=== PATIENT | female | born 1985 | race Caucasian/White ===

== ENCOUNTER 2019-07-18 19:07 | Inpatient (IN) | payer BC ==
--- NOTE | 2019-07-18 19:38 | ER Document Report ---
ED Medical Screen (RME) - General Chief Complaint: Abdominal Pain Stated Complaint: ABDOMINAL PAIN Time Seen by Provider: 07/18/19 19:35 Mode of Arrival: Wheelchair Information source: Patient Notes: 33-year-old female presented to ED for complaint of right lower quadrant pain. She states she was told she had a sac on her appendix in November. She states she was scheduled for the surgery to have the appendix removed but she got before the scheduled surgery was scheduled so that they would not do the surgery to remove the appendix. She states they told her that time they did not know if the appendix would last till September but they could not do it while she was . She states she has since had a miscarriage and then today about 5:00 the pain was much worse than it had been. Denies any fevers. She states she has had 3 emesis today. Is been nauseated all day. I have greeted and performed a rapid initial assessment of this patient. A comprehensive ED assessment and evaluation of the patient, analysis of test results and completion of medical decision making process will be conducted by an additional ED providers.
[2019-07-18] MEDS ORDERED: NORMAL SALINE 1000 ML 1,000 ML IV ONE (19:39)
[2019-07-18] MEDS ORDERED: ONDANSETRON 4 MG TAB.RAPDIS PO ONE (19:39)
[2019-07-18 21:03] LABS: ABSOLUTE BASOPHILS # (AUTO) 0.1 10^3/uL (0.0-0.2); ABSOLUTE EOSINOPHILS # (AUTO) 0.2 10^3/uL (0.0-0.6); ABSOLUTE LYMPHOCYTES (AUTO) 2.2 10^3/uL (0.5-4.7); ABSOLUTE MONOCYTES (AUTO) 0.7 10^3/uL (0.1-1.4); ABSOLUTE NEUT (AUTO) 5.8 10^3/uL (1.7-8.2); BASOPHILS % (AUTO) 0.7 % (0-2); EOSINOPHILS % (AUTO) 1.8 % (0-6); HEMATOCRIT 41.7 % (36.0-47.0); HEMOGLOBIN 14.7 g/dL (12.0-15.5); LYMPHOCYTES % (AUTO) 24.7 % (13-45); MEAN CORPUSCULAR HEMOGLOBIN 32.3 pg (27.0-33.4); MEAN CORPUSCULAR HGB CONC 35.2 g/dL (32.0-36.0); MEAN CORPUSCULAR VOLUME 92 fl (80-97); MONOCYTES % (AUTO) 7.8 % (3-13); PLATELET COUNT 247 10^3/uL (150-450); RED BLOOD COUNT 4.54 10^6/uL (3.72-5.28); RED CELL DISTRIBUTION WIDTH 13.9 % (11.5-14.0); TOTAL CELLS COUNTED % (AUTO) 100 %
[2019-07-18 21:17] LABS: ALBUMIN 4.7 g/dL (3.5-5.0); ALKALINE PHOSPHATASE 92 U/L (38-126); ANION GAP 10 (5-19); ASPARTATE AMINO TRANSFERASE 34 U/L (14-36); BILIRUBIN,DIRECT 0.2 mg/dL (0.0-0.4); BILIRUBIN,TOTAL 0.6 mg/dL (0.2-1.3); BLOOD UREA NITROGEN 16 mg/dL (7-20); CALCIUM 9.9 mg/dL (8.4-10.2); CARBON DIOXIDE 28 mmol/L (22-30); CHLORIDE 101 mmol/L (98-107); GLUCOSE 93 mg/dL (75-110); POTASSIUM 3.8 mmol/L (3.6-5.0); TOTAL PROTEIN 8.4 g/dL (6.3-8.2)
[2019-07-18 21:30] LABS: APPEARANCE,URINE SLIGHTLY-CLOUDY; BILIRUBIN,URINE NEGATIVE (NEGATIVE); COLOR,URINE YELLOW; GLUCOSE, URINE NEGATIVE (NEGATIVE); KETONES,URINE NEGATIVE (NEGATIVE); PROTEIN,URINE NEGATIVE (NEGATIVE); URINE SPECIFIC GRAVITY 1.019; UROBILINOGEN,URINE NEGATIVE mg/dL (<2.0)
[2019-07-18] MEDS ORDERED: NORMAL SALINE 1000 ML 1,000 ML IV PRN (22:10)
[2019-07-18] MEDS ORDERED: ONDANSETRON HCL INJ/PF 4 MG/2 ML SDV IV ONE (22:11)
[2019-07-18] MEDS ORDERED: FENTANYL CITRATE INJ/PF 100 MCG/2 ML AMPUL IV PRN (22:11)
--- NOTE | 2019-07-18 22:18 | ER Document Report ---
ED General - General Chief Complaint: Abdominal Pain Stated Complaint: ABDOMINAL PAIN Time Seen by Provider: 07/18/19 19:35 Mode of Arrival: Wheelchair TRAVEL OUTSIDE OF THE [place] IN LAST 30 DAYS: No - HPI Notes: 33-year-old female a chief complaint of right lower quadrant abdominal pain associated with nausea and vomiting onset around 5 PM today getting progressively worse. Location of pain has not changed since onset. No fever or chills. No urinary symptoms. Patient has had long-standing history of irregular menses and has not had a normal period since May. Of interest this lady recently moved here from [facility] and says about 6 months ago she had been worked up for abdominal pain and found to have a "pocket" on the appendix and they had recommended an elective appendectomy. There was apparently some sort of a problem that required her to cancel schedule surgery and she moved in the meantime. Patient is a 4 para 2 with 1 stillbirth and 1 spontaneous miscarriage. No history of ectopic . Previous cholecystectomy. Patient says she is also been told in the past that she had a small umbilical hernia. Patient denies any history of diabetes hypertension or cardiac disease. - Related Data Allergies/Adverse Reactions: morphine Allergy (Verified 07/18/19 20:37) oxycodone Allergy (Verified 07/18/19 20:37) Past Medical History - General Information source: Patient, Relative - Social History Smoking Status: Never Smoker Frequency of alcohol use: None Drug Abuse: None Family History: Reviewed & Not Pertinent Patient has suicidal ideation: No Patient has homicidal ideation: No Review of Systems - Review of Systems Notes: Constitutional: Negative for fever. HENT: Negative for sore throat. Eyes: Negative for visual changes. Cardiovascular: Negative for chest pain. Respiratory: Negative for shortness of breath. Gastrointestinal: As per HPI. Genitourinary: Negative for dysuria. Musculoskeletal: Negative for back pain. Skin: Negative for rash. Neurological: Negative for headaches, weakness or numbness. 10 point ROS negative except as marked above and in HPI. Physical Exam - Vital signs Vitals: Temp Pulse Resp BP 97.4 F 104 H 22 H 135/87 H 07/18/19 19:41 07/18/19 19:41 07/18/19 19:41 07/18/19 19:41 - Notes Notes: GENERAL: Moderately obese middle-aged female who appears quite uncomfortable. SKIN: Good turgor no rashes. HEAD: Normocephalic atraumatic. EYES: PERRLA. Conjunctivae and sclerae clear. EARS: CANALS AND TMS CLEAR. NOSE: CLEAR. MOUTH: Moist mucosa. Good dentition. No stridor or edema. No drooling. NECK: Supple. No masses or thyromegaly. No adenopathy. Carotids 2+ without bruits. No JVD. BACK: Symmetrical without tenderness. CHEST: Respirations unlabored. Breath sounds clear and symmetrical. HEART: Regular rhythm. No murmur gallop or rub. ABDOMEN: Obese. Exquisitely tender right lower quadrant. Mild voluntary guarding without rigidity, masses, organomegaly or rebound. Bowel sounds normally active. No bruits. GENITALIA: Deferred. EXTREMITIES: No edema. No calf tenderness. Cap refill less than 1.5 seconds. Dorsalis pedis and posterior tibial pulses 3+ and symmetrical. NEUROLOGICAL: GCS 15. Alert and oriented x3. Normal gait. Fluent speech. Cranial nerves II through XII intact. Sensorimotor and cerebellar normal. Normal tone. Course - Re-evaluation Re-evalutation: 07/18/19 22:17 Primary concern would be appendicitis. Labs are unremarkable at this point. test is negative. Patient will remain n.p.o. and is receiving normal saline IV fentanyl and IV Zofran pending results of CT scan with oral and IV contrast. 07/19/19 02:33 CT shows mucocele of the appendix and large fat-containing umbilical hernia. Ongoing nausea. Patient now describes 5/10 pain and remains tender. Surgical consultation with Dr. Crowder who will evaluate patient at this time. 07/19/19 03:12 Patient is being admitted to the general surgery service. - Vital Signs Vital signs: Temp Pulse Resp BP Pulse Ox 97.4 F 104 H 22 H 135/87 H 07/18/19 19:41 07/18/19 19:41 07/18/19 19:41 07/18/19 19:41 - Laboratory Result Diagrams: 07/18/19 20:39 07/18/19 20:39 Laboratory results interpreted by me: 07/18/19 07/18/19 20:00 20:39 Total Protein 8.4 H Leukocyte Esterase Rfl SMALL H - Diagnostic Test Radiology reviewed: Reports reviewed - CT shows a large mucocele of the appendix and some scattered diverticula without diverticulitis as well as a moderate sized fat-containing umbilical hernia. Discharge - Discharge Clinical Impression: Mucocele of appendix Abdominal pain Qualifiers: Abdominal location: right lower quadrant Qualified Code(s): R10.31 - Right lower quadrant pain Umbilical hernia Qualifiers: Obstruction and gangrene presence: without obstruction or gangrene Qualified Code(s): K42.9 - Umbilical hernia without obstruction or gangrene Condition: Good Disposition: ADMITTED INPATIENT Admitting Provider: Surgicalist
[2019-07-18] MEDS ORDERED: METOCLOPRAMIDE HCL INJ/PF 10 MG/2 ML SDV IV ONE (23:12)
--- NOTE | 2019-07-19 01:38 | RADIOLOGY REPORT (SQ) ---
CT abdomen and pelvis with contrast on 07/19/2019 at 1:07 AM CLINICAL INDICATION: Right lower quadrant pain TECHNIQUE: Multiple axial images are obtained throughout the abdomen and pelvis following the administration of IV contrast, 100 mL of Omnipaque 350 contrast was administered intravenously without complication. This exam was performed according to our departmental dose-optimization program, which includes automated exposure control, adjustment of the mA and/or kV according to patient size and/or use of iterative reconstruction technique. Total DLP is 1893.41 mGy*cm. COMPARISON: None FINDINGS: Abdomen: There is minimal left basilar atelectasis. The lung bases are otherwise clear. The patient is status post cholecystectomy. The solid abdominal organs are unremarkable. There is no abdominal adenopathy. There is a small to moderate-sized umbilical hernia containing fat. There is no free fluid or free air within the abdomen. There is diverticulosis. There is a very small hiatal hernia. The abdominal portion of the GI tract is otherwise unremarkable. Pelvis: There is a large mucocele of the appendix measuring up to 2.4 cm in diameter. There is no adjacent inflammation around the appendix to suggest acute appendicitis. Due to this large mucocele would recommend surgical consultation for nonemergent appendectomy. There is diverticulosis. The uterus is retroverted/retroflexed. There is no free fluid in the pelvis. Pelvic organs otherwise appear unremarkable by CT. There is no pelvic adenopathy. Pelvic portion of the GI tract is otherwise unremarkable. No bony abnormality is noted. IMPRESSION: 1. Large mucocele of the appendix, recommend surgical consultation for nonemergent appendectomy. 2. Diverticulosis. 3. Small to moderate-sized umbilical hernia containing only fat.
[2019-07-19] MEDS ORDERED: MORPHINE SULFATE 10 MG/ML INJ IV PRN (03:03)
[2019-07-19] MEDS ORDERED: ONDANSETRON HCL INJ/PF 4 MG/2 ML SDV IV PRN (03:03)
--- NOTE | 2019-07-19 03:03 | PDOC H&P ---
History of Present Illness Admission Date/PCP: 07/19/19 Patient complains of: abdominal pain History of Present Illness: LORNA HU is a 33-year-old female a chief complaint of right lower quadrant abdominal pain associated with nausea and vomiting onset around 5 PM today getting progressively worse. Location of pain has not changed since onset. No fever or chills. No urinary symptoms. Patient has had long-standing history of irregular menses and has not had a normal period since May. Of interest she recently moved here from [facility] and says about 6 months ago she had been worked up for abdominal pain was scheduled for a umbililcal hernia repair. just prior to surgery according to her was to have a "pocket" on the appendix and they had recommended an elective appendectomy, and did not proceed with the umbilical hernia repair There was apparently some sort of a problem that required her to cancel schedule surgery and she moved in the meantime. she currently is c/o rt sided abd pain. Past Medical History Cardiac Medical History: Denies: None, Atrial Fibrillation, Congestive Heart Failure, Coronary Artery Disease, DVT, Myocardial Infarction, Hyperlipidema, Hypertension, Peripheral Vascular Disease, Pulmonary Embolism, Heart Murmur, Other Pulmonary Medical History: Reports: Asthma EENT Medical History: Denies: None, Cataracts, Eyes, Ears, Nose, Throat, Other Neurological Medical History: Denies: None, Hemorrhagic CVA, Ischemic CVA, Migraine, Multiple Sclerosis, Seizures, Other Endocrine Medical History: Denies: None, Diabetes Mellitus Type 1, Diabetes Mellitus Type 2, Gestational Diabetes, Hyperthyroidism, Hypothyroidism, Obesity, Other Renal/ Medical History: Denies: None, Chronic Kidney Disease, End Stage Renal Disease, Nephrolithiasis, Other Malignancy Medical History: Reports: Lymphoma Denies: None, Bone Cancer, Brain Cancer, Breast Cancer, Cervical Cancer, Colorectal Cancer, Leukemia, Liver Cancer, Lung Cancer, Ovarian Cancer, Pancreatic Cancer, Renal (Kidney) Cancer, Skin Cancer, Other Malignancy History Note: hx of hodgkins lymphoma, s/p chemo/rt. GI Medical History: Denies: None, Cirrhosis, Crohn's Disease, Diverticulitis, Gastroesophageal Reflux Disease, Hepatitis, Hiatal Hernia, Peptic Ulcer Disease, Ulcerative Colitis, Other Past Surgical History Past Surgical History: Reports: Cholecystectomy, Vascular Surgery - dominic cath left chest wall Social History Smoking Status: Never Smoker Family History Parental Family History Reviewed: No Children Family History Reviewed: NA Sibling(s) Family History Reviewed.: NA Medication/Allergy Allergies/Adverse Reactions: morphine Allergy (Verified 07/18/19 20:37) oxycodone Allergy (Verified 07/18/19 20:37) Review of Systems Constitutional: PRESENT: fever(s) Eyes: ABSENT: as per HPI, visual disturbances, other Ears: ABSENT: as per HPI, hearing changes, other Nose, Mouth, and Throat: ABSENT: as per HPI, headache(s), mouth pain, sore throat, vertigo, other Breasts: ABSENT: as per HPI, other Cardiovascular: ABSENT: as per HPI, chest pain, dyspnea on exertion, edema, orthropnea, palpitations, other Respiratory: ABSENT: as per HPI, cough, dyspnea, hemoptysis, sputum, other Gastrointestinal: PRESENT: abdominal pain Musculoskeletal: ABSENT: as per HPI, back pain, deformity, joint swelling, muscle weakness, other Integumentary: ABSENT: as per HPI, diaphoresis, erythema, lesions, pruritus, rash, wounds, other Neurological: ABSENT: as per HPI, abnormal gait, abnormal movements, abnormal speech, confusion, convulsions, dizziness, focal weakness, frequent falls, lack of coordination, memory loss, numbness, paresthesias, restless legs, syncope, tingling, tremor(s), vertigo, weakness, other Psychiatric: ABSENT: as per HPI, anxiety, depression, hallucinations, homidical ideation, suicidal ideation, other Endocrine: ABSENT: as per HPI, cold intolerance, flushing, heat intolerance, menstrual abnormalities, polydipsia, polyphagia, polyuria, other Hematologic/Lymphatic: ABSENT: as per HPI, easy bleeding, easy bruising, lym phadenopathy, other Allergic/Immunologic: ABSENT: as per HPI, seasonal rhinorrhea, other Physical Exam Vital Signs: Temp Pulse Resp BP Pulse Ox 97.4 F 104 H 22 H 135/87 H 07/18/19 19:41 07/18/19 19:41 07/18/19 19:41 07/18/19 19:41 Intake & Output 07/17/19 07/18/19 07/19/19 06:59 06:59 06:59 Intake Total 1999 Balance 1999 Weight 106.5 kg General appearance: PRESENT: mild distress, obese Head exam: PRESENT: normocephalic Eye exam: PRESENT: EOMI Ear exam: PRESENT: normal external ear exam Mouth exam: PRESENT: moist Neck exam: PRESENT: full ROM Respiratory exam: PRESENT: clear to auscultation ladan, other Cardiovascular exam: PRESENT: RRR, other - she has a port palpable left chest wall Pulses: PRESENT: normal radial pulses, normal femoral pulses GI/Abdominal exam: PRESENT: guarding - rlq, tenderness Rectal exam: PRESENT: deferred Extremities exam: PRESENT: full ROM Musculoskeletal exam: PRESENT: full ROM Neurological exam: PRESENT: alert, awake, oriented to person, oriented to place Psychiatric exam: PRESENT: appropriate affect Skin exam: PRESENT: dry Results Laboratory Results: 07/18/19 20:39 07/18/19 20:39 07/18/19 07/18/19 07/18/19 20:00 20:39 20:39 WBC 9.0 RBC 4.54 Hgb 14.7 Hct 41.7 MCV 92 MCH 32.3 MCHC 35.2 RDW 13.9 Plt Count 247 Seg Neutrophils % 65.0 Sodium 139.1 Potassium 3.8 Chloride 101 Carbon Dioxide 28 Anion Gap 10 BUN 16 Creatinine 0.86 Est GFR ( Amer) > 60 Glucose 93 Calcium 9.9 Total Bilirubin 0.6 AST 34 Alkaline Phosphatase 92 Total Protein 8.4 H Albumin 4.7 Serum HCG, Qual Urine Color YELLOW Urine Appearance SLIGHTLY-CLOUDY Urine pH 7.0 Ur Specific [place] 1.019 Urine Protein NEGATIVE Urine Glucose (UA) NEGATIVE Urine Ketones NEGATIVE Urine Blood NEGATIVE Urine RBC (Auto) 2 07/18/19 20:39 WBC RBC Hgb Hct MCV MCH MCHC RDW Plt Count Seg Neutrophils % Sodium Potassium Chloride Carbon Dioxide Anion Gap BUN Creatinine Est GFR ( Amer) Glucose Calcium Total Bilirubin AST Alkaline Phosphatase Total Protein Albumin Serum HCG, Qual NEGATIVE Urine Color Urine Appearance Urine pH Ur Specific [place] Urine Protein Urine Glucose (UA) Urine Ketones Urine Blood Urine RBC (Auto) Impressions: Abdomen/Pelvis CT 07/19/19 00:00 IMPRESSION: 1. Large mucocele of the appendix, recommend surgical consultation for nonemergent appendectomy. 2. Diverticulosis. 3. Small to moderate-sized umbilical hernia containing only fat. Assessment & Plan - Plan Summary Plan Summary: will admit pt for emergent laparoscopic appendectomy, umbilical hernia repair and poss port-a cath removal Discussed risks and benefits including bleeding infection pulmonary embolism stroke microinfarction and . Specific to the operation she understands the possibility of injury to adjacent organs including the small bowel and colon ureters intra-abdominal vasculature which could result in need for additional surgery and permanent disability she understands the possibility of leak after surgery which could result in intra-abdominal sepsis and in addition that she understands the possibility of recurrence after her umbilical hernia repair in addition to chronic pain secondary to the hernia repair. As far as her port is concerned she understands the possibility of infection related to port removal as well as embolism which could result in . These risks and benefits of been discussed with her and she understands and agrees to proceed
[2019-07-19] MEDS: POTASSI CL 20 MEQ/D5-1/2NS 1L 1,000 ML IV PRN ×2 (03:37→13:51)
[2019-07-19] MEDS ORDERED: METRONIDAZOLE 500 MG/NS RTU 500 MG/100 ML RTUPB IV PRN (06:11)
[2019-07-19] MEDS ORDERED: CEFAZOLIN 1 GM/D5W RTU 1 GM/50 ML RTUPB IV PRN (06:11)
[2019-07-19] MEDS ORDERED: ACETAMINOPHEN 1,000 MG/100 ML RTUPB IV ONE ×3 (06:15→23:15)
[2019-07-19] MEDS ORDERED: CEFAZOLIN SODIUM 1 GM in DEXTROSE 5%-WATER 50 ML IV PRN (08:07)
--- NOTE | 2019-07-19 09:47 | Progress Note ---
Provider Note Provider Note: Surgical intervention discussed with patient. Plan for laparoscopic versus open appendectomy, primary closure of her umbilical hernia, and removal of her Mediport. Risks/benefits discussed, informed consent obtained, and all questions answered.
[2019-07-19] MEDS ORDERED: ROCURONIUM BROMIDE INJ 50 MG/5 ML VIAL IV ONE (11:57)
[2019-07-19] MEDS ORDERED: SUCCINYLCHOLINE CHLORIDE INJ 200 MG/10 ML VIAL ONE (11:57)
[2019-07-19] MEDS ORDERED: GLYCOPYRROLATE 1 MG/5 ML VIAL ONE (11:57)
[2019-07-19] MEDS ORDERED: NEOSTIGMINE METHYLSULFATE 10 MG/10 ML VIAL ONE (11:57)
[2019-07-19] MEDS ORDERED: FAMOTIDINE INJ/PF 20 MG/2 ML SDV IV ONE ×2 (13:59→14:15)
[2019-07-19] MEDS ORDERED: BUPIVACAINE HCL 0.25 % INJ/PF (2.5 MG/1 ML) 30 ML VIAL ONE (17:36)
[2019-07-19] MEDS ORDERED: PROPOFOL INJ 200 MG/20 ML VIAL IV ONE (17:43)
[2019-07-19] MEDS ORDERED: MIDAZOLAM 2 MG/2 ML INJ ONE (17:43)
[2019-07-19] MEDS ORDERED: MORPHINE SULFATE 10 MG/ML INJ ONE (17:43)
[2019-07-19] MEDS ORDERED: FENTANYL CITRATE INJ/PF 250 MCG/5 ML AMPULE ONE (17:43)
[2019-07-19] MEDS ORDERED: DIPHENHYDRAMINE HCL 50 MG/ML VIAL IV PRN (18:47)
[2019-07-19] MEDS ORDERED: MEPERIDINE HCL/PF INJ 25 MG/1 ML DISP.SYRIN IV PRN (18:47)
[2019-07-19] MEDS ORDERED: FENTANYL CITRATE INJ/PF 100 MCG/2 ML AMPUL IV PRN (18:47)
[2019-07-19] MEDS ORDERED: PROMETHAZINE HCL INJ 25 MG/1 ML VIAL IV PRN ×2 (18:47)
[2019-07-19] MEDS ORDERED: EPHEDRINE SULFATE INJ 50 MG/1 ML AMPULE ONE (19:17)
[2019-07-19] MEDS ORDERED: FENTANYL CITRATE INJ/PF 100 MCG/2 ML AMPUL ONE (19:37)
[2019-07-19] MEDS ORDERED: HYDROCODONE/ACETAMINOPHEN 10-325 MG TABLET PO PRN (20:08)
--- NOTE | 2019-07-19 20:23 | Operative Report ---
Nonrecallable Operative Report DATE OF SURGERY: 07/19/19 PREOPERATIVE DIAGNOSIS: 1. Appendiceal tumor. 2. Dysfunctional Mediport. 3. Umbilical hernia, symptomatic POSTOPERATIVE DIAGNOSIS: Same as above OPERATION: 1. Removal of dysfunctional Mediport. 2. Laparoscopic appendectomy. 3. Primary repair of incarcerated umbilical hernia SURGEON: PAULETTE PARKER ANESTHESIA: GA TISSUE REMOVED OR ALTERED: 1. Appendix and tumor. 2. Dysfunctional Mediport COMPLICATIONS: None apparent ESTIMATED BLOOD LOSS: Minimal PROCEDURE: Drains/implants: None. Procedure in detail: After informed consent was obtained, the patient was brought to the operating room and laid in the supine position. The area of the left chest was prepped and draped in a normal sterile fashion. An incision was created within the bounds of a previous scar. The Mediport was dissected free of the subcutaneous tissue using sharp and blunt dissection. The catheter was identified. The catheter was removed from the vein, in one continuous piece. Next the Mediport hub was removed from the patient's subcutaneous tissue. No undue bleeding was noted. The subcutaneous tissues were then closed using 3-0 Vicryl suture in simple running fashion. The overlying skin was closed using 4- 0 Vicryl Rapide suture in subcuticular fashion. A dressing was placed, and this portion of the procedure was concluded. The area of the abdomen was then prepped and draped in a normal sterile fashion. A curvilinear supraumbilical incision was created. Dissection was carried through the subcutaneous tissue using sharp and blunt dissection. The cicatrix was encircled, the cicatrix was elevated away from the anterior abdominal wall, and the hernia sac was divided. There was incarcerated omentum within the hernia sac. This was freed from the surrounding subcutaneous tissues and reduced back into the abdomen. The abdomen was then accessed using the balloon trocar. Gas insufflation was attached, and pneumoperitoneum was achieved. A 5 mm suprapubic trocar was then placed under direct laparoscopic visualization. Another left lower quadrant trocar was placed in similar fashion. Atraumatic graspers were placed through the 5 mm ports. The appendix was dilated, but did not appear inflamed. The ileocecal valve was identified. The mesoappendix was opened, and a window posterior to the cecum was created. Next, the Riva 60 stapler was used to divide the base of the cecum, freeing the appendix. Once this was completed, the mesoappendix was taken down using the harmonic scalpel. The appendix was then placed into an Endo Catch bag and pulled out through the umbilicus. The appendix was not ruptured or opened during this maneuver. The camera was then reinserted. The right lower quadrant was inspected. It was found to be free of any active bleeding. The 5 mm trochars were then removed under direct laparoscopic visualization. The supraumbilical trocar was removed, and attention was then turned to closure of the umbilical hernia defect. The defect was large, measuring greater than 3 cm in diameter. The fascia was closed in transverse fashion with [id number] #1 Ethibond sutures. 3 separate sutures were used. Once the defect was closed, the cicatrix was tacked back to the fascia using 3-0 Vicryl suture. Subcutaneous tissue was then closed using 3-0 Vicryl suture. The overlying skin was closed using 4-0 Vicryl Rapide suture in subcuticular fashion. Dressings were placed, and the procedure was concluded. All sponge, instrument, and needle counts were correct x2. Condition: Stable.
[2019-07-19] MEDS: FENTANYL CITRATE INJ/PF 100 MCG/2 ML AMPUL ONE ×2 (20:42→20:50)
[2019-07-19] MEDS ORDERED: FAMOTIDINE INJ/PF 20 MG/2 ML SDV IV SCH (22:00)
[2019-07-19] MEDS: KETOROLAC TROMETHAMINE INJ/PF 30 MG/1 ML SDV IV SCH (22:36)
[2019-07-20] MEDS: KETOROLAC TROMETHAMINE INJ/PF 30 MG/1 ML SDV IV SCH (07:08)
--- NOTE | 2019-07-20 07:49 | PDOC DISCHARGE SUMMARY ---
General - Admit/Disc Date/PCP Admission Date/Primary Care Provider: 07/19/19 03:11 Discharge Date: 07/20/19 - Discharge Diagnosis Final Diagnosis: appendiceal tumor, dysfunctional mediport, umbilical hernia - Assessment Summary: 33 y/o F admitted with abdominal pain. 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 The pt presents for treatment of all 3 problems. She was taken to the operating room, where lap appendectomy, removal of mediport, and umbilical hernia repair were performed. On POD 1 she was doing well. She was ambulating and tolerating a diet. At this time it is felt that she has reached maximal hospital benefit and is fit for discharge. - Additional Information Resuscitation Status: Full Code Discharge Diet: As Tolerated Discharge Activity: No Lifting Over 10 Pounds, No Lifting/Push/Pulling Home Medications: Aspirin [Adult Low Dose Aspirin EC] 81 mg PO DAILY 07/19/19 Omeprazole 20 mg PO BID 07/19/19 Additional Information: d/c home. Diet as tolerated, Activity: no lifting >10 lbs x 6 weeks. F/u 7-10 days. OK to shower tomorrow. [place] 10/325 mg PO q6 hours PRN pain. Ibuprofen 800mg PO TID with meals. No tub baths or swimming x 2 weeks. History of Present Illiness History of Present Illness: LORNA HU is a 33 year old female Physical Exam Vital Signs: Temp Pulse Resp BP Pulse Ox 98.2 F 76 18 127/71 H 97 07/20/19 04:48 07/20/19 04:48 07/20/19 04:48 07/20/19 04:48 07/20/19 04:48 Intake & Output 07/19/19 07/20/19 07/21/19 06:59 06:59 06:59 Intake Total 2027 2271 Output Total 300 Balance 2027 1971 Weight 107.9 kg 114 kg Results Laboratory Results: WBC 9.0 10^3/uL (4.0-10.5) 07/18/19 20:39 RBC 4.54 10^6/uL (3.72-5.28) 07/18/19 20:39 Hgb 14.7 g/dL (12.0-15.5) 07/18/19 20:39 Hct 41.7 % (36.0-47.0) 07/18/19 20:39 MCV 92 fl (80-97) 07/18/19 20:39 MCH 32.3 pg (27.0-33.4) 07/18/19 20:39 MCHC 35.2 g/dL (32.0-36.0) 07/18/19 20:39 RDW 13.9 % (11.5-14.0) 07/18/19 20:39 Plt Count 247 10^3/uL (150-450) 07/18/19 20:39 Lymph % (Auto) 24.7 % (13-45) 07/18/19 20:39 [place] % (Auto) 7.8 % (3-13) 07/18/19 20:39 Eos % (Auto) 1.8 % (0-6) 07/18/19 20:39 Baso % (Auto) 0.7 % (0-2) 07/18/19 20:39 Absolute Neuts (auto) 5.8 10^3/uL (1.7-8.2) 07/18/19 20:39 Absolute Lymphs (auto) 2.2 10^3/uL (0.5-4.7) 07/18/19 20:39 Absolute Monos (auto) 0.7 10^3/uL (0.1-1.4) 07/18/19 20:39 Absolute Eos (auto) 0.2 10^3/uL (0.0-0.6) 07/18/19 20:39 Absolute Basos (auto) 0.1 10^3/uL (0.0-0.2) 07/18/19 20:39 Seg Neutrophils % 65.0 % (42-78) 07/18/19 20:39 Sodium 139.1 mmol/L (137-145) 07/18/19 20:39 Potassium 3.8 mmol/L (3.6-5.0) 07/18/19 20:39 Chloride 101 mmol/L (98-107) 07/18/19 20:39 Carbon Dioxide 28 mmol/L (22-30) 07/18/19 20:39 Anion Gap 10 (5-19) 07/18/19 20:39 BUN 16 mg/dL (7-20) 07/18/19 20:39 Creatinine 0.86 mg/dL (0.52-1.25) 07/18/19 20:39 Est GFR ( Amer) > 60 (>60) 07/18/19 20:39 Est GFR (MDRD) Non-Af > 60 (>60) 07/18/19 20:39 Glucose 93 mg/dL (75-110) 07/18/19 20:39 Calcium 9.9 mg/dL (8.4-10.2) 07/18/19 20:39 Total Bilirubin 0.6 mg/dL (0.2-1.3) 07/18/19 20:39 Direct Bilirubin 0.2 mg/dL (0.0-0.4) 07/18/19 20:39 Neonat Total Bilirubin Not Reportable 07/18/19 20:39 Neonat Direct Bilirubin Not Reportable 07/18/19 20:39 Neonat Indirect Bili Not Reportable 07/18/19 20:39 AST 34 U/L (14-36) 07/18/19 20:39 ALT 20 U/L (<35) 07/18/19 20:39 Alkaline Phosphatase 92 U/L (38-126) 07/18/19 20:39 Total Protein 8.4 g/dL (6.3-8.2) H 07/18/19 20:39 Albumin 4.7 g/dL (3.5-5.0) 07/18/19 20:39 Serum HCG, Qual NEGATIVE (NEGATIVE) 07/18/19 20:39 Urine Color YELLOW 07/18/19 20:00 Urine Appearance SLIGHTLY-CLOUDY 07/18/19 20:00 Urine pH 7.0 (5.0-9.0) 07/18/19 20:00 Ur Specific [place] 1.019 07/18/19 20:00 Urine Protein NEGATIVE mg/dL (NEGATIVE) 07/18/19 20:00 Urine Glucose (UA) NEGATIVE mg/dL (NEGATIVE) 07/18/19 20:00 Urine Ketones NEGATIVE mg/dL (NEGATIVE) 07/18/19 20:00 Urine Blood NEGATIVE (NEGATIVE) 07/18/19 20:00 Urine Nitrite (Reflex) NEGATIVE (NEGATIVE) 07/18/19 20:00 Urine Bilirubin NEGATIVE (NEGATIVE) 07/18/19 20:00 Urine Urobilinogen NEGATIVE mg/dL (<2.0) 07/18/19 20:00 Leukocyte Esterase Rfl SMALL (NEGATIVE) H 07/18/19 20:00 Urine RBC (Auto) 2 /HPF 07/18/19 20:00 U Hyaline Cast (Auto) 1 /LPF 07/18/19 20:00 Urine Bacteria (Auto) TRACE /HPF 07/18/19 20:00 Urine WBC (Reflex) 8 /HPF 07/18/19 20:00 Squamous Epi Cells Auto 9 /HPF 07/18/19 20:00 Urine Mucus (Auto) RARE /LPF 07/18/19 20:00 Urine Ascorbic Acid NEGATIVE (NEGATIVE) 07/18/19 20:00 Impressions: Abdomen/Pelvis CT 07/19/19 00:00 IMPRESSION: 1. Large mucocele of the appendix, recommend surgical consultation for nonemergent appendectomy. 2. Diverticulosis. 3. Small to moderate-sized umbilical hernia containing only fat.
[2019-07-20 08:50] VITALS: BP 109/61
== END 2019-07-20 09:32 | disposition home or self-care (01) | DRG 339 ==
LOC: ER 19:07 → EH 07-19 03:11 → 2N 07-19 04:28
PROVIDERS: ADMIT Surgery; ATTEND Surgery
PROC: 0JPV3WZ Removal of Totally Implantable Vascular Access Device from Upper Extremity Subcutaneous Tissue and Fascia, Percutaneous Approach (ICD-10-PCS; 2019-07-19)
PROC: 0DTJ4ZZ Resection of Appendix, Percutaneous Endoscopic Approach (ICD-10-PCS; principal; 2019-07-19 16:30)
PROC: 0WQF4ZZ Repair Abdominal Wall, Percutaneous Endoscopic Approach (ICD-10-PCS; 2019-07-19 16:30)
DX: C18.1 Malignant neoplasm of appendix (principal); T85.618A Breakdown (mechanical) of other specified internal prosthetic devices, implants and grafts, initial encounter; K42.9 Umbilical hernia without obstruction or gangrene; E66.9 Obesity, unspecified; Y82.8 Other medical devices associated with adverse incidents; Z88.6 Allergy status to analgesic agent
CPT/HCPCS: 36415; 74177; 80053; 81001; 84703; 85025; 88304; 94799; 96361; 96374; 96375; 99285; J0131; J0330; J0690; J1885; J2250; J2270; J2405; J2704; J2710; J2765; J3010; J3480; J3490; J7030; S0028; S0119

== ENCOUNTER → 2019-11-25 | Outpatient (CLI) | payer BC ==
--- NOTE | 2019-11-25 12:18 | ER RDC ASSESSMENT REPORT ---
Intake - In the Last 14 days Have you traveled outside [place]?: No Have you been in close contact with someone CONFIRMED: No Worked in Healthcare?: No - Symptoms Subjective Fever([place] feverish): Yes Chills: Yes Muscule Aches: Yes Runny Nose: No Sore Throat: Yes Cough (New or worsening chronic cough): Yes Shortness of breath: Yes Nausea or Vomiting: No Headache: Yes Abdominal Pain: No Diarrhea(3 or more loose stools in last 24 hours): Yes - Do you have any of the following Chronic lung disease: Asthma or emphysema or COPD: Yes Chronic Lung Disease Comment: Patient reports history of PE related to Hodgkin's lymphoma, states she is currently in remission. Cystic Fibrosis: No Diabetes: No High Blood Pressure: No Cardiovascular Disease: No Chronic Kidney Disease: No Chronic Liver Disease: No Chronic blood disorder like Sickle Cell Disease: No Weak immune system due to disease or medication: Yes Immune System Comment: Patient reports history of Hodgkin's lymphoma for which she states she is currently in remission. Neurologic condition that limits movement: Yes Neurological Condition Comment: Patient reports history of Raynauds Syndrome. Developmental delay - Moderate to Severe: No Recent (within past 2 weeks) or current : No Morbid Obesity (>100 pounds over ideal weight): Yes Obesity Comment: Patient reports her weight to be 240 pounds which equates to 110 kg. - Objective Temperature: 97 F Pulse Rate: 69 Respiratory Rate: 20 Blood Pressure: 133/88 O2 Sat by Pulse Oximetry: 99 Objective: Patient is an acutely ill-appearing 34-year-old female who presents today for COVID-19 Screening. Disposition: Home; Selfcare General - General Stated Complaint: Upper respiratory symptoms x2 days Mode of Arrival: Ambulatory Information source: Patient Notes: The patient was evaluated during the global COVID 19 pandemic, and that diagnosis was suspected/considered upon their initial presentation. Their evaluation, treatment, and testing was consistent with current guidelines for patients who present with complaints or symptoms that may be related to COVID 19. - HPI Patient complains to provider of: Upper respiratory symptoms Onset: Other - 2 days Onset/Duration: Gradual Quality of pain: Achy Severity: Moderate Pain Level: 3 Context: Generalized body aches. Associated symptoms: Chills, Nonproductive cough, Diarrhea, Fever, Headache, Shortness of breath, Sore throat Exacerbated by: Denies Relieved by: Denies Similar symptoms previously: No Recently seen / treated by doctor: No Notes: Patient reports she is currently in remission after being treated for Hodgkin's lymphoma. - Related Data Allergies/Adverse Reactions: blackberry Allergy (Verified 07/19/19 05:58) morphine Allergy (Verified 07/18/19 20:37) orange Allergy (Verified 07/19/19 05:58) oxycodone Allergy (Verified 07/18/19 20:37) pineapple Allergy (Verified 07/19/19 05:58) raspberry Allergy (Verified 07/19/19 05:58) strawberry Allergy (Verified 07/19/19 05:58) Past Medical History - General Information source: Patient - Social History Smoking Status: Never Smoker Cigarette use (# per day): No Chew tobacco use (# tins/day): No Smoking Education Provided: No Frequency of alcohol use: Rare Drug Abuse: None Lives with: Family Family History: Reviewed & Not Pertinent Patient has suicidal ideation: No Patient has homicidal ideation: No - Past Medical History Cardiac Medical History: Denies: Hx Atrial Fibrillation, Hx Congestive Heart Failure, Hx Coronary Artery Disease, Hx DVT, Hx Heart Attack, Hx Hypercholesterolemia, Hx Hypertension, Hx Peripheral Vascular Disease, Hx Pulmonary Embolism, Hx Heart Murmur Pulmonary Medical History: Reports: Hx Asthma Neurological Medical History: Denies: Hx Migraine, Hx Seizures Endocrine Medical History: Denies: Hx Diabetes Mellitus Type 1, Hx Diabetes Mellitus Type 2, Hx Hyperthyroidism, Hx Hypothyroidism Renal/ Medical History: Denies: Hx End Stage Renal Disease Malignancy Medical History: Reports: Hx Lymphoma. Denies: Hx Bone Cancer, Hx Brain Cancer, Hx Breast Cancer, Hx Cervical Cancer, Hx Colorectal Cancer, Hx Leukemia, Hx Liver Cancer, Hx Lung Cancer, Hx Ovarian Cancer, Hx Pancreatic Cancer, Hx Renal (Kidney) Cancer, Hx Skin Cancer GI Medical History: Denies: Hx Cirrhosis, Hx Crohn's Disease, Hx Diverticulitis, Hx Gastroesophageal Reflux Disease, Hx Hepatitis, Hx Hiatal Hernia, Hx Ulcerative Colitis Psychiatric Medical History: Reports: Hx Depression - PPD Infectious Medical History: Denies: Hx Hepatitis Past Surgical History: Reports: Hx Cholecystectomy, Hx Vascular Surgery - dominic cath left chest wall Physical Exam - General General appearance: Other - Patient appears acutely ill. In distress: None Diagnostic Results Laboratory Results: Patient notified of NEGATIVE results on Rapid Flu (A & B) and Rapid Strep. Advised Throat Culture and COVID testing are PENDING, and they will be notified of any POSITIVE results at a later date/time. Patient Education/Counseling Counseling/Education: Patient presents with upper respiratory symptoms worrisome for possible Covid 19. Patient does not have emergency worring symptoms such as difficulty breathing, shortness of breath, chest pain, pressure, confusion or cyanosis. Patient appears suitable for discharge. Patient's vital signs are stable and patient is nontoxic in appearance. Good return precautions have been discussed with patient, patient verbalized understanding and is agreeable with discharge plan of care at this time. Patient provided COVID 19 discharge instructions to include: As a person under investigation for Covid 19, the [place] department of Health and Human Services, division of public health advises you to adhere to the following guidance until your test results are reported to you. If your test result is positive, you will receive additional information from your provider and your local health department at that time. Remain at home until you are cleared by the health provider or public health authorities. Keep a log of visitors to your home, notify any visitors to your home of your isolation status. If you plan to move to a new address or leave the county, notify the local health department in your County. Call your doctor or seek care if you have an urgent medical need. Before seeking medical care, call ahead to get instructions from the provider before arriving at the medical office clinic or hospital. Notify them that you are being tested for the virus that causes Covid 19 so that arrangements can be made, as necessary, to prevent transmission to others in the healthcare setting. Next, notify the local health department in your county. If a medical emergency arises and you need to call 911, inform dispatch and the first responders that you are being tested for the virus that causes Covid 19. Next, notify the local health department in your county. Guidance for worsening S/SX: For worsening symptoms, patient has been advised to contact their Primary Care Provider, or go to the nearest Emergency Department. [facility] Discharge - Discharge Clinical Impression: COVID-19 Screening URI (upper respiratory infection) Qualifiers: URI type: unspecified URI Qualified Code(s): J06.9 - Acute upper respiratory infection, unspecified Condition: Stable Disposition: Home; Selfcare
[2019-11-25 13:12] LABS: A TYPE INFLUENZA AG NEGATIVE (NEGATIVE); B INFLUENZA AG NEGATIVE (NEGATIVE)
[2019-11-25 13:18] VITALS: BP 133/88
== END ==
LOC: RDC 11:13
PROVIDERS: ATTEND Nurse Practitioner Family
DX: J06.9 Acute upper respiratory infection, unspecified (principal); Z20.828 Contact with and (suspected) exposure to other viral communicable diseases; R50.9 Fever, unspecified; J02.9 Acute pharyngitis, unspecified; R05 Cough; R06.02 Shortness of breath; R51 Headache; R19.7 Diarrhea, unspecified; J45.909 Unspecified asthma, uncomplicated; Z85.71 Personal history of Hodgkin lymphoma; I73.00 Raynaud's syndrome without gangrene; E66.01 Morbid (severe) obesity due to excess calories; F32.9 Major depressive disorder, single episode, unspecified; Z91.018 Allergy to other foods; Z88.6 Allergy status to analgesic agent
CPT/HCPCS: 87070; 87635; 87804; 87880; 99211